=== PATIENT | female | born 1950 | race African-American/Black ===

== ENCOUNTER 2024-07-22 10:02 | Emergency (ER) | payer BC, MEDICAID ==
[~2024-07-22] VITALS: Ht 162.6 cm; Wt 73.0 kg
[2024-07-22 10:08] VITALS: BP 154/68; PULSE 96; RESP 18; TEMP 36.8; O2SAT 99
[2024-07-22] MEDS: ACETAMINOPHEN 325MG TABLET PO ONE (13:25)
[2024-07-22] MEDS ORDERED: IBUP-1523 MT (16:06)
[2024-07-22] MEDS ORDERED: TOPUD MT (16:06)
== END 2024-07-22 18:35 | disposition home or self-care (01) ==
LOC: ER 10:28
DX: S93.401A Sprain of unspecified ligament of right ankle, initial encounter (principal); E11.9 Type 2 diabetes mellitus without complications; I10 Essential (primary) hypertension; Z98.890 Other specified postprocedural states; W01.0XXA Fall on same level from slipping, tripping and stumbling without subsequent striking against object, initial encounter; Y93.89 Activity, other specified; Y92.89 Other specified places as the place of occurrence of the external cause; Y99.8 Other external cause status
CPT/HCPCS: 73610; 73630; 99284